=== PATIENT | male | born 1970 | race Two or more races ===

== ENCOUNTER 2020-07-02 13:50 | Emergency (ER) | payer OTHER ==
[~2020-07-02] VITALS: Ht 175.3 cm; Wt 67.6 kg
[2020-07-02] MEDS ORDERED: SODIUM CHLORIDE 0.9% 1000ML 1,000 ML IV STA (14:57)
[2020-07-02] MEDS ORDERED: ONDANSETRON HCL INJ 2MG/ML 2ML 2 MG/ML VIAL IV ONE (15:00)
[2020-07-02] MEDS ORDERED: DICYCLOMINE HCL 20 MG/2 ML VIAL IM ONE ×2 (15:00→16:01)
[2020-07-02] MEDS ORDERED: FAMOTIDINE 20 MG/2 ML VIAL IV ONE ×2 (15:00→16:01)
[2020-07-02] MEDS ORDERED: KETOROLAC TROMETHAMINE 30 MG/ML VIAL IV ONE (15:00)
[2020-07-02] MEDS ORDERED: FAMOTIDINE20 MG PO (15:24)
[2020-07-02] MEDS ORDERED: ONDANSETRON ODT4 MG PO (15:24)
[2020-07-02] MEDS ORDERED: MAALOX MAXIMUM355 ML PO (15:24)
[2020-07-02] MEDS ORDERED: SODIUM CHLORIDE 0.9% 50ML 50 ML ONE (15:41)
[2020-07-02] MEDS ORDERED: IOPAMIDOL 370 MG/ML 200 ML INFUS..BTL INJ ONE (15:41)
[2020-07-02] MEDS ORDERED: KETOROLAC TROMETHAMINE 30 MG/ML VIAL ONE (16:01)
[2020-07-02] MEDS ORDERED: ONDANSETRON HCL INJ 2MG/ML 2ML 2 MG/ML VIAL ONE (16:01)
[2020-07-02] MEDS ORDERED: SODIUM CHLORIDE 0.9% 1000ML 1,000 ML ONE (16:01)
[2020-07-02 16:54] VITALS: BP 154/88
== END 2020-07-02 16:51 | disposition home or self-care (01) ==
LOC: FSED 13:59
DX: R10.10 Upper abdominal pain, unspecified (principal); R11.2 Nausea with vomiting, unspecified; K52.9 Noninfective gastroenteritis and colitis, unspecified; K29.70 Gastritis, unspecified, without bleeding
CPT/HCPCS: 74177; 80048; 80076; 81003; 85025; 96372; 96374; 96375; 99284; J0500; J1885; J2405; J7030; Q9967